=== PATIENT | female | born 1955 | race Caucasian/White ===

== ENCOUNTER → 2017-03-11 | Outpatient (CLI) | payer BC ==
--- NOTE | 2017-03-12 19:34 | Diagnostic Imaging Report ---
Bilateral screening mammogram 2D views with tomosynthesis. The current study was also evaluated with a Computer Aided Detection (CAD) system. INDICATION: Screening. No current complaints stated on the questionnaire. COMPARISON: 03/15/16 FINDINGS: The breasts are composed of scattered fibroglandular densities. There is no mass, architectural distortion or suspicious cluster of calcifications seen. Allowing for technique and positional differences, no suspicious change is seen. IMPRESSION: No significant change. ACR BI-RADS Category 2: Benign findings. Result letter will be mailed to the patient. Note: At least 10% of breast cancer is not imaged by mammography. Dictated by: Dictated on workstation # [id number]
== END ==
LOC: RAD 09:40
PROVIDERS: ATTEND Nurse Practitioner
DX: Z12.31 Encounter for screening mammogram for malignant neoplasm of breast (principal)
CPT/HCPCS: 77067

== ENCOUNTER → 2019-01-19 | Outpatient (CLI) | payer BC ==
--- NOTE | 2019-01-19 21:17 | Diagnostic Imaging Report ---
Digital mammogram bilateral screening with 3-D tomosynthesis with CAD The study was compared to prior films of 03/11/2017 and 03/06/2016. At this time, there are no current complaints. The current study was also evaluated with a Computer Aided Detection (CAD) system. 3-D Tomographic imaging was also performed. FINDINGS: The fibroglandular tissue in both breasts is heterogeneously dense. This does limit the sensitivity of this exam. Overall, there does not appear to have been any significant change when compared to the prior study. No primary or secondary sign of malignancy is noted. IMPRESSION: There is no radiographic evidence for malignancy. ACR BI-RADS Category 1: Negative. Result letter will be mailed to the patient. Note: At least 10% of breast cancer is not imaged by mammography. Dictated by: Dictated on workstation # [id number]
== END ==
LOC: RAD 08:17
PROVIDERS: ATTEND Nurse Practitioner
DX: Z12.31 Encounter for screening mammogram for malignant neoplasm of breast (principal); N76.0 Acute vaginitis
CPT/HCPCS: 77067

== ENCOUNTER 2019-11-20 08:47 | Outpatient (RCR) | payer BC ==
[~2019-11-20] VITALS: Ht 167 cm; Wt 90.9 kg
[~2019-11-20 08:47] MED LIST: ADAL40SY SQ; AZAT50TA16 PO; ESTR1TAB24 PO; ESTR42.511 VG; FIBE1TAB4 PO; L.AC1CAP6 PO
== END 2019-11-20 14:42 | disposition home or self-care (01) ==
LOC: PREOP 08:47
PROVIDERS: ATTEND Obstetrics & Gynecology
DX: Z01.818 Encounter for other preprocedural examination (principal); Z01.812 Encounter for preprocedural laboratory examination; Z11.59 Encounter for screening for other viral diseases; N81.0 Urethrocele; N39.3 Stress incontinence (female) (male)
CPT/HCPCS: 87635

== ENCOUNTER 2019-11-24 07:58 | Day surgery (SDC) | payer BC ==
[~2019-11-24] VITALS: Ht 167 cm; Wt 90.9 kg
[2019-11-24] VITALS (12 sets, daily range): BP systolic 88–128; BP diastolic 54–84
[2019-11-24] MEDS ORDERED: ceFAZolin INJECTION 1,000 MG in WATER (STERILE) FOR INJECTION 10 ML IV ONE (08:15)
[2019-11-24] MEDS ORDERED: CATHETER FLUSH 10 ML SYR IV PRN (08:15)
[2019-11-24] MEDS ORDERED: NS (IVPB) 100 ML ONE (08:37)
[2019-11-24] MEDS ORDERED: VASOPRESSIN INJECTION 20 UNIT/ML VIAL ONE (08:37)
[2019-11-24] MEDS ORDERED: ESTRADIOL VAGINAL CREAM 42.5 GM (ESTRACE) VG ONE (08:37)
--- OUTSIDE RECORDS SUMMARY | 2019-11-24 08:39 | XMS REPORT ---
Author Author Rhea Johnson Organization [facility] Address [address] [place] [address] Care Team Providers Care Preflight Mechanic Name Role Phone JULIETTE Johnson Unavailable PROBLEMS Type Condition ICD9-CM Code XYL62-MP Code Onset Dates Condition S tatus SNOMED Code Problem DTAP TEST V06.1 Active Problem Need for prophylactic vaccination and inoculation, Influen za V04.81 Active [id number] ALLERGIES No Information ENCOUNTERS Encounter Location Date Diagnosis [facility] [address] [facility] [id number] [place] [address] [id number] Mar, Encounter for immunization Z 23 [place] [id number] [facility] [id number] [address] [place] [phone] Mar, Need for diphtheria-tetanus- pertussis (Tdap) vaccine Z23 and Flu vaccine need Z23 [facility] [address] [id number] [address] [place] [phone] Mar, [facility] [address] [facility] [id number] [address] [place] [phone] Mar, [facility] [address] [id number] [address] [place] [phone] Mar, [facility] [address] [id number] [address] [place] [phone] Mar, [facility] [address] [id number] [address] [place] [phone] May, [facility] [address] [id number] [address] [place] [phone] May, IMMUNIZATIONS No Known Immunizations SOCIAL HISTORY Never Assessed REASON FOR VISIT PLAN OF CARE VITAL SIGNS MEDICATIONS Unknown Medications RESULTS No Results PROCEDURES No Known procedures INSTRUCTIONS MEDICATIONS ADMINISTERED No Known Medications
--- OUTSIDE RECORDS SUMMARY | 2019-11-24 08:39 | XMS REPORT ---
Author Author Rhea MCMAHON Organization [employer] Address Unknown Phone Unavailable Care Team Providers Care Souvenir Assembler Name Role Phone JULIETTE MCMAHON CP Unavailable Allergies No Known Allergies Problems Problem Type Condition Code Onset Dates Condition Statu s Problem DTAP TEST V06.1 Active Assessment Need for vrwutbtccb-vhjbgxn-xtignquiq (Tdap) vaccine Z 23 Active Problem Need for prophylactic vaccination and inoculation, Inf luenza V04.81 Active Assessment Flu vaccine need Z23 Active Medications No Known Medications Procedures Procedure Coding System Code Date FLUARIX QUAD (3 & UP)-GSK-2014 CPT-4 26596 O 2014 SINGLE IMMUNIZATION ADMIN CPT-4 71408 Mar TDAP (BOOSTRIX) CPT-4 78498 Apr 20, 2015 IMMUNIZATION ADMIN, EACH ADD (please include units) CPT-4 08957 Apr 20, 2015 Results No Known Results Immunizations Vaccine Administration Date TDAP (BOOSTRIX) Apr 20, 2015 FLUARIX QUAD (3 & UP)-GSK-2014Apr 20, 2015 Summary Purpose [employer] Submission
--- OUTSIDE RECORDS SUMMARY | 2019-11-24 08:39 | XMS REPORT | Continuity of Care Document ---
Author Organization Unknown Address Unknown Phone Unavailable Allergies Active Description Code Type Severity Reaction Onset Reported/Identified Relationship to Patient Clinical Status Yes LIPITOR SEVERE SEVERE Yes LOVASTATIN SEVERE SEVERE Yes No Known Drug Allergies [id number] Drug Allergy Unknown N/A 11/17/2019 Medications There is no data. Problems Date Dx Coded Attending Type Code Diagnosis Diagnosed By 06/06/2012 V04.81 FLU DX (3 YRS AND ABOVE, IM) 06/06/2012 V06.1 TDAP DX 06/06/2012 RAJOTTE DIRECTOR PRIVATE, JULIETTE A V04.81 FLU DX (3 YRS AND ABOVE, IM) 06/06/2012 RAJOTTE DIRECTOR PRIVATE, JULIETTE A V06.1 TDAP DX 06/06/2012 RAJOTTE DIRECTOR PRIVATE, JULIETTE A V04.81 FLU DX (3 YRS AND ABOVE, IM) 06/06/2012 RAJOTTE DIRECTOR PRIVATE, JULIETTE A V06.1 TDAP DX 03/03/2015 SMITHA TAM [employer] [place] Ot V76.1 2 03/13/2016 SMITHA TAM [employer] [place] Ot Z12.3 1 ENCNTR SCREEN MAMMOGRAM FOR MALIGNANT NE 03/15/2016 SMITHA TAM [employer] [place] Ot R92.8 OTH ABN AND INCONCLUSIVE FINDINGS ON DX 03/19/2016 SMITHA TAMP Ot R92.8 OTH ABN AND INCONCLUSIVE FINDINGS ON DX 03/21/2016 SMTIHA TAM [employer] [place] Ot Z12.3 1 ENCNTR SCREEN MAMMOGRAM FOR MALIGNANT NE 03/28/2016 SMITHA TAM [employer] [place] Ot R92.8 OTH ABN AND INCONCLUSIVE FINDINGS ON DX 03/11/2017 Ot V76.12 OTH SCREEN MAMMO- MALIGN NEOPLASM OF ONEYDA 03/11/2017 SMITHA TAMP Ot V76.1 2 OTH SCREEN MAMMO-MALIGN NEOPLASM OF ONEYDA 03/11/2017 SMITHA TAM [employer] [place] Ot V76.1 2 OTH SCREEN MAMMO-MALIGN NEOPLASM OF ONEYDA 03/11/2017 ANEL SMITHA Dumont [employer] [place] Ot V76.1 2 OTH SCREEN MAMMO-MALIGN NEOPLASM OF ONEYDA 03/11/2017 ANEL SMITHA Julia [employer] [place] Ot Z12.3 1 ENCNTR SCREEN MAMMOGRAM FOR MALIGNANT NE 03/11/2017 ANEL SMITHA Dumont [employer] [place] Ot R92.8 OTH ABN AND INCONCLUSIVE FINDINGS ON DX 03/21/2017 ANEL SMITHA W [employer] [place] Ot Z12.3 1 ENCNTR SCREEN MAMMOGRAM FOR MALIGNANT NE 05/12/2018 ANEL SMITHA W [employer] [place] Ot V76.1 2 OTH SCREEN MAMMO-MALIGN NEOPLASM OF ONEYDA 05/12/2018 ANEL SMITHA W [employer] [place] Ot V76.1 2 OTH SCREEN MAMMO-MALIGN NEOPLASM OF ONEYDA 05/12/2018 ANEL SMITHA W [employer] [place] Ot V76.1 2 OTH SCREEN MAMMO-MALIGN NEOPLASM OF ONEYDA 05/12/2018 ANEL SMITHA W [employer] [place] Ot Z12.3 1 ENCNTR SCREEN MAMMOGRAM FOR MALIGNANT NE 05/12/2018 ANEL SMITHA W [employer] [place] Ot R92.8 OTH ABN AND INCONCLUSIVE FINDINGS ON DX 05/12/2018 ANEL SMITHA W [employer] [place] Ot Z12.3 1 ENCNTR SCREEN MAMMOGRAM FOR MALIGNANT NE 05/12/2018 ANEL SMITHA W [employer] [place] Ot V76.1 2 OTH SCREEN MAMMO-MALIGN NEOPLASM OF ONEYDA 05/12/2018 ANEL SMITHA W [employer] [place] Ot V76.1 2 OTH SCREEN MAMMO-MALIGN NEOPLASM OF ONEYDA 05/12/2018 ANEL SMITHA W [employer] [place] Ot V76.1 2 OTH SCREEN MAMMO-MALIGN NEOPLASM OF ONEYDA 05/12/2018 ANEL SMITHA W [employer] [place] Ot Z12.3 1 ENCNTR SCREEN MAMMOGRAM FOR MALIGNANT NE 05/12/2018 ANEL SMITHA W [employer] [place] Ot R92.8 OTH ABN AND INCONCLUSIVE FINDINGS ON DX 05/12/2018 SMITHA TAM [employer] [place] Ot Z12.3 1 ENCNTR SCREEN MAMMOGRAM FOR MALIGNANT NE 01/23/2019 SMITHA TAM [employer] [place] Ot N76.0 ACUTE VAGINITIS 01/23/2019 SMITHA TAM [employer] [place] Ot Z12.3 1 ENCNTR SCREEN MAMMOGRAM FOR MALIGNANT NE 02/13/2019 SMITHA TAM [employer] [place] Ot N76.0 ACUTE VAGINITIS 02/13/2019 ANELSTANLEYStar ELLIS Ot Z12.3 1 ENCNTR SCREEN MAMMOGRAM FOR MALIGNANT NE Procedures There is no data. Results Test Result Range Coronavirus SARS-CoV-2 SO 2018 - 0 12:47 Coronavirus Ab [Units/volume] in Serum Negative Negative Encounters ACCT No. Visit Date/Time Discharge Status Pt. Type Provider Facility Loc./Unit Complaint [id number] 04/26/2014 09:00:00 04/26/2014 23:59: 59 CLS Outpatient SALOME JULIETTE LOVETT [id number] 04/17/2013 10:11:00 04/17/2013 23:59: 59 CLS Outpatient JULIETTE MCMAHON APRN [id number] 06/06/2012 15:15:00 06/06/2012 23:59: 59 CLS Outpatient [id number] 06/06/2012 15:26:55 RECURRING [id number] 11/20/2019 08:47:00 020 14:42:00 DIS Outpatient BRITTANY SONG DO [facility] PREOP STRESS URINARY INCONTIN ENCE [id number] 01/19/2019 08:17:00 019 23:59:59 CLS Outpatient SMITHA TAM [facility] RAD SCREENING [id number] 03/11/2017 09:40:00 017 23:59:59 CLS Outpatient SMITHA TAM [facility] RAD SCREENING [id number] 03/15/2016 14:33:00 016 23:59:59 CLS Outpatient SMITHA TAM [facility] RAD ABNORMAL MAMMO [id number] 03/06/2016 14:47:00 016 23:59:59 CLS Outpatient SMITHA TAM [facility] RAD SCREENING [id number] 02/14/2015 11:44:00 015 23:59:59 CLS Outpatient SMITHA TAM [facility] RAD SCREENING [id number] 02/10/2014 08:38:00 014 23:59:59 CLS Outpatient SMITHA TAM [facility] RAD SCREENING [id number] 02/05/2013 09:48:00 013 23:59:59 CLS Outpatient SMITHA TAM [facility] RAD SCREENING [id number] 11/24/2019 12:00:00 P EN Preadmit BRITTANY SONG DO [facility] STRESS URINARY INCONTINENCE [id number] 01/01/2012 07:19:00 Document Registration [id number] 07/20/2019 13:49:00 07/20/2019 23:59 :00 DIS Outpatient Chang Fraser [id number] 07/06/2019 09:51:00 07/06/2019 23:59 :00 DIS Outpatient Chang Fraser [id number] 12/07/2018 00:00:00 12/07/2018 23:59: 00 DIS Outpatient Chang Fraser
--- OUTSIDE RECORDS SUMMARY | 2019-11-24 08:39 | XMS REPORT ---
Author Author [employer] [facility] [employer] [facility] [employer] Address [address] [address] Care Team Providers Care Paint Spray Tender Name Role Phone JULIETTE MCMAHON Unavailable Unavailable AMANDA NAIR Unavailable Unavailable AMANDA NAIR Unavailable Unavailable AMANDA NAIR Unavailable Unavailable SMITHA TAM Unavailable Unavailable JULIETTE Johnson Unavailable BRITTANY SONG DO Unavailable Unavailable DO Radha NAIR PCP Unavailable Unavailable Unavailable Unavailable Unavailable Unavailable Unavailable Unavailable Allergies Normalized Allergy Reported Date of Reaction(s) Care Provider Facility Allergy Type classification allergen Allergy Onset Drug Allergy HMG-CoA Lovastatin [facility] ([facility] sources[facility] Red[facility] of Inhibitors [place] (statins) [facility] ([id number]) Medications Medication Ingredient Drug Dose Dates Status Sig Sig Care Class(es) (Normalized) (Original) Provid er 0.4 ml adalimumab Tumor Active no Adalimumab no adalimumab Necrosis information Active 40 name 100 mg/ml Factor SUBCUTANEOUS prefilled Jenn Every Other syringe (1 Week source.) azaTHIOprin azaTHIOprin Purine Active no Azathioprine no e 50 mg e Antimetabol information Active 50 name oral tablet ite ORAL Twice A (1 source.) Day no Bran/Gum/Fi no Active no Bran/Gum/Fib no information b/Tona/Psyl/ information information /Tona/Psyl/Ke name (1 source.) Kelp/Pec lp/Pec Active 1000 ORAL Daily estradiol 1 Estradiol Estrogen Active no Estradiol no mg oral Translation information Active 1 name tablet (2 s: [ ORAL Every sources.) Estradiol] 48 Hours Active no Estradio no name inform l Active ation 42.5 VAGINAL 3X Per Week no L.acidoph & no Active no L.acidoph & no information Paracasei,B information information Paracasei,B. name (1 source.) .lactis lactis Active 1 ORAL Daily Problems Problem Normalized Date Last Normalized Normalized Provider Fa cility Classification Problem(s) Recorded Problem Problem Sta tus Duration Inflammatory Acute Episodic Completed SMITHA QUICK [facility] diseases of vaginitis [facility] pelvic [facility] - organs (2 Combes sources.) (54245) Other Other abnormal Episodic Completed SMITHA QUICK Not Kaylin ilable screening for and (53668) suspected inconclusive conditions findings on (not mental diagnostic disorders or imaging of infectious breast disease) (18 Translations: sources.) [ OTH SCREEN MAMMO-MALIGN NEOPLASM OF ONEYDA, ENCNTR SCREEN MAMMOGRAM FOR MALIGNANT NE] Procedures The data below is from unstructured sources Procedure Coding System Code Date FLUARIX QUAD (3 & UP)--2014 CPT-4 40142 Apr 20, 2015 SINGLE IMMUNIZATION ADMIN CPT-4 61548 Apr 20, 2015 TDAP (BOOSTRIX) CPT-4 90 715 Apr 20, 2015 IMMUNIZATION ADMIN, EACH ADD (please include units) CPT-4 00832 Apr 20, 2015 No procedure information available. Immunizations Normalized Immunization Date Notes Care Provider Facili ty Immunization influenza, 04-12-2017 no information no name Not Availab le injectable, (17930) quadrivalent, preservative free Results Test Name Value Interpretation Reference Range Date Time Fa cility (Normalized) (Normalized) (Medline Reference) laboratory on 2019-11-20 Coronavirus Ab Negative (no code) 11-20-2019 PENDING LOC ATION Qn (S) 08:47-0400 [facility] (76305) Vital Signs The data below is from unstructured sources Vital Reading Result Col lection Date/Time Interventions No Information Plan of Treatment Normalized Care Care Detail Care Activity Date Care Provider F acility Activity Coronavirus Ab Qn no information no information DO AMANDA NAIR [phone] (S) (Work Phone: [facility] ) ([address]) Goals Patient Goal Desired Goal no information no information Social History Normalized Code Original Code Date Value Tobacco smoking status Tobacco smoking status no information Ex-smoker (finding) ORIS ORIS no information no information 11-17-2019 Occasionally Us es no information no information 11-17-2019 No no information no information 11-17-2019 Former Smoker Sex Assigned At Sex Assigned At no information F emale Functional Status The data below is from unstructured sourcesNo Functional Status information available Mental Status The data below is from unstructured sourcesNo Mental Status Information Available Encounters Encounter Normalized Encounter Encounter Diagnosis Care Provi viridiana Organization Date Type 11-20-2019 Discharged Recurring no information (no phone) As cension [facility] (no phone) 11-20-2019 03-11-2017 Patient encounter no information no name no or ganization name 03-15-2016 Patient encounter no information no name no or ganization name 03-06-2016 Patient encounter no information no name no or ganization name 02-14-2015 Patient encounter no information no name no or ganization name 02-10-2014 Patient encounter no information no name no or ganization name 02-05-2013 Patient encounter no information no name no or ganization name Patient encounter no information no name no organizat ion name 11-20-2019 Patient encounter no information BRITTANY SONG DO ( no [facility] - procedure phone) [facility] 11-20-2019 (no phone) 11-17-2019 Patient encounter no information BRITTANY SONG DO ( no [facility] procedure phone) [facility] (no phone) 07-20-2019 Patient encounter no information no name no or ganization name - procedure 07-20-2019 07-06-2019 Patient encounter no information no name no or ganization name - procedure 07-06-2019 01-19-2019 Patient encounter no information no name no or ganization name procedure 12-07-2018 Patient encounter no information no name no or ganization name - procedure 12-08-2018 01-01-2012 Patient encounter no information no name no or ganization name procedure Medical Equipment The data below is from unstructured sourcesNo Medical Equipment Information available Payers Normalized Payer Value [facility] no information Evaluation note Note Type Note Facility Evaluation No Assessments Information Available A scension note [facility] ([address]) Summary Purpose [employer]ClinicalWorks Submission Advance Directives Advance Directive Response Recorded Date/Time Advance Directives No Ma y 2019 11:18am Health Care Power of Roving Frame Tender No November 17, 2019 11:18am Resuscitation Status Full Code November 17, 2019 11:18am Additional Source Comments This clinical document has been generated using [employer] software that has been certified by the Office of the National Coordinator for Health Information Technology (ONC 15.99.04.3023.Diam.31.00.0.384088) and the National Committee for Barber Stylist (NCQA, as an eMeasure certified technology). FOR RECORDS PERTAINING TO PATIENTS WHO ARE OR HAVE BEEN ENROLLED IN A CHEMICAL D EPENDENCY/SUBSTANCE ABUSE PROGRAM, SOME INFORMATION MAY BE OMITTED. This clinica l summary was aggregated from multiple sources. Caution should be exercised in using it in the provision of clinical care. This summary normalizes information from multiple sources, and as a consequence, information in this document may ma terially change the coding, format and clinical context of patient data. In jermain tion, data may be omitted in some cases. CLINICAL DECISIONS SHOULD BE BASED ON T HE PRIMARY CLINICAL RECORDS. [facility]. provides no warranty or guara ntee of the accuracy or completeness of information in this document.The followi information is based on time limited clinical information
[2019-11-24] MEDS: LACTATED RINGERS 1,000 ML IV PRN (09:10)
[2019-11-24] MEDS ORDERED: MIDAZOLAM 2 MG/2 ML (VERSED) VIAL ONE (09:11)
[2019-11-24] MEDS ORDERED: fentaNYL INJECTION 100 MCG/2 ML AMP ONE ×2 (09:11→11:23)
[2019-11-24 09:20] LABS: BASOPHILS % (AUTO) 1 % (0-10); EOSINOPHILS # (AUTO) 0.1 10^3/uL (0.0-0.3); EOSINOPHILS % (AUTO) 2 % (0-10); HEMATOCRIT 40 % (35-52); HEMOGLOBIN 13.1 G/DL (11.5-16.0); LYMPHOCYTES # (AUTO) 1.3 X 10^3 (1.0-4.0); LYMPHOCYTES % (AUTO) 21 % (12-44); MEAN CORPUSCULAR HEMOGLOBIN 30 PG (25-34); MEAN CORPUSCULAR HGB CONC 33 G/DL (32-36); MEAN CORPUSCULAR VOLUME 92 FL (80-99); MEAN PLATELET VOLUME 10.5 FL (7.4-10.4); MONOCYTES # (AUTO) 0.8 X 10^3 (0.0-1.0); MONOCYTES % (AUTO) 13 % (0-12); NEUTROPHILS # (AUTO) 3.8 X 10^3 (1.8-7.8); NEUTROPHILS % (AUTO) 63 % (42-75); PLATELET COUNT 278 10^3/uL (130-400); RED CELL DISTRIBUTION WIDTH 14.9 % (10.0-14.5)
[2019-11-24] MEDS ORDERED: LIDOCAINE PF 2% 5 ML (XYLOCAINE) VIAL ONE (09:24)
[2019-11-24] MEDS ORDERED: ONDANSETRON 4 MG/2 ML (SDV) Z0FRAN ONE (09:24)
[2019-11-24] MEDS ORDERED: proPOfol 200 MG/20 ML (DIPRIVAN) VIAL IV ONE (09:24)
[2019-11-24] MEDS ORDERED: SEVOFLURANE (ULTANE) 15 ML INHAL SOLN ONE ×3 (09:24→11:42)
--- NOTE | 2019-11-24 10:35 | Progress Note-Pre Operative ---
Pre-Operative Progress Note H&P Reviewed The H&P was reviewed, patient examined and no changes noted. Plan anterior posterior colporrhaphy. Decided against pubovaginal sling Date Seen by Provider: November 24, 2019 Time Seen by Provider: 08:15 Date H&P Reviewed: November 24, 2019 Time H&P Reviewed: 07:30 Pre-Operative Diagnosis: anterior posterior repair, stress incontinence BRITTANY SONG DO November 24, 2019 10:35
[2019-11-24] MEDS ORDERED: KETOROLAC 30 MG/ML VIAL ONE (11:40)
[2019-11-24] MEDS ORDERED: LACTATED RINGERS 1,000 ML IV SCH (11:49)
--- NOTE | 2019-11-24 11:56 | Operative Report ---
Operative Report Date of Procedure/Surgery November 24, 2019 Surgeon (s) BRITTANY SONG DO [employer] Supervisor (s): nA Post-Operative Diagnosis RECTOCELE Procedure Performed POSTERIOR COLPORRHAPHY Description of Procedure Anesthesia Type: General Estimated blood loss (mL): 100 Specimen(s) collected/removed MIMINAL Description of the Procedure After informed consent was obtained, patient was taken into the operating room where general anesthetic was found to be adequate. She was prepped and draped in the usual sterile fashion in the dorsal lithotomy position. A Parish catheter was placed. A speculum was placed in the vagina. There was a large rectocele, 3-4+ with a scarred perineum. The lonestar retractor was placed. I used a marcial retractor to retracet the anterior vagina. I grasped the perineum on either side of the midline with the glen clamps. I then injected the posterior epithelium with the dilute vasopressin and then made a midline incision I undermined the posterior vaginal epithelium and then dissected this off of the pubovaginal fascia laterally. I then reduced the rectocele with two layers of interrupted figure of eight style 2-0 Vicryl sutures. This adequately reduced the rectocele. There was no enterocele. I then did an perineorrhaphy by removed a pyramidal shaped portion of the per ineum, thus removing the scarred area. I then trimmed the vaginal epithelium and then closed the defect with 2-- Vicryl in a running fashion. And then repositioned the perineum with a crown stitch and closed with 2-0 Vicryl in a running fashion. The vagina was then packed with Estrace cream and vaginal packing. Sponge, lap, needle and instrument counts correct times two. Patient was awakened and taken to recovery in a stable condition Findings of the Procedure 3-4 + RECTOCELE SCARRED PERINEUM MINIMAL CYSTOCELE Allergies and Home Medications Allergies Coded Allergies: No Known Drug Allergies (Unverified , 11/17/19) Home Medications Adalimumab 40 Mg/0.4 Ml Syringekit, 40 MG SQ EVERY OTHER WEEK, (Reported) Azathioprine 50 Mg Tablet, 50 MG PO BID, (Reported) Bran/Gum/Fib/Tona/Psyl/Kelp/Pec 1,000 Mg Tablet, 1,000 MG PO DAILY, (Reported) Estradiol 1 Mg Tablet, 1 MG PO Q48H, (Reported) Estradiol 42.5 Gm Cream.appl, 42.5 GM VG 3X PER WEEK, (Reported) L.acidoph & Paracasei,B.lactis 1 Each Capsule, 1 EACH PO DAILY, (Reported) Patient Home Medication List Home Medication List Reviewed: Yes BRITTANY SONG DO November 24, 2019 11:56
[2019-11-24] MEDS ORDERED: KETOROLAC 15 MG/ML VIAL IVP ONE (12:00)
[2019-11-24] MEDS ORDERED: ONDANSETRON 4 MG/2 ML (SDV) Z0FRAN IVP PRN (12:00)
[2019-11-24] MEDS ORDERED: MEPERIDINE (DEMEROL) INJ 50 MG/ML IVP ONE (12:00)
[2019-11-24] MEDS ORDERED: morphine INJ 4 MG/ML 1 ML (VIAL/SYRINGE) IVP PRN (12:00)
[2019-11-24] MEDS ORDERED: fentaNYL INJECTION 100 MCG/2 ML AMP IVP ONE (12:00)
[2019-11-24] MEDS ORDERED: HYDROmorphone 2 MG/ML VIAL (DILAUDID) IV ONE (12:00)
[2019-11-24] MEDS ORDERED: morphine INJ 10 MG/ML 1ML (SYR OR VIAL) IVP ONE (12:00)
[2019-11-24] MEDS ORDERED: PROMETHAZINE INJ 25 MG/ML (PHENERGAN) AMP IVP ONE (12:00)
[2019-11-24] MEDS ORDERED: BENZOCAINE/MENTHOL (DERMOPLAST) 60 ML CAN TP PRN (12:00)
--- NOTE | 2019-11-24 12:00 | Anesthesia-General Post-Op ---
General Patient Condition Mental Status/LOC: Same as Preop Cardiovascular: Satisfactory Nausea/Vomiting: Absent Respiratory: Satisfactory Pain: Controlled Complications: Absent Post Op Complications Complications None Follow Up Care/Instructions Patient Instructions None needed. Anesthesia/Patient Condition Patient Condition Patient is doing well, no complaints, stable vital signs, no apparent adverse anesthesia problems. No complications reported per nursing. TESHA DOWNING CRNA November 24, 2019 12:00
[2019-11-24] MEDS ORDERED: HYDROmorphone 2 MG/ML VIAL (DILAUDID) ONE (12:14)
--- NOTE | 2019-11-24 12:50 | NUR ---
Pt to room 306 via bed accompanied by PACU staff. RN to room to introduce self. Report rec'd from Paige Ramirez RN. Assessment completed, VS taken. IV fluids to pump. Calf SCD's on and activated. Parish patent, draining to dependent drainage. Pt oriented to room and call light. Ice chips provided at this time. Pt denies needs or concerns. Addendum: 11/24/19 at 1416 by SOFYA KIDD RN Pt to room 305, not 306.
[2019-11-24] MEDS: ACETAMINOPHEN 500 MG TAB (TYLENOL) PO SCH ×2 (14:00→22:00)
--- NOTE | 2019-11-24 16:04 | NUR ---
Dr. Maradiaga called and notified of only 10ml/hr output. Order rec'd for 1000ml IV fluid bolus and continue to monitor.
[2019-11-24] MEDS: IBUPROFEN 600 MG (MOTRIN) TAB PO SCH ×2 (18:06→23:31)
--- NOTE | 2019-11-24 18:53 | NUR ---
Dr. Maradiaga called to unit to check on pt. Updated on improved but unremarkable output. No new orders rec'd.
--- NOTE | 2019-11-24 19:20 | NUR ---
Pt sitting up in bed on phone, denies needs or pain. plan of care reviewed, carbajal cath to dd, small amount of urine noted in tubing and milked to chamber, will cont to monitor. fresh ice water given.
--- NOTE | 2019-11-24 20:20 | NUR ---
Pt cont to sit up in bed on ipad, denies needs or pain.
--- NOTE | 2019-11-24 21:20 | NUR ---
pt resting with eyes closed, aroused per rn. Rn milked carbajal cath, pericare given and clean vpad in place. 60ml of dark yellow urine noted in carbajal chamber.
--- NOTE | 2019-11-25 01:29 | NUR ---
Pt sleeping in bed, aroused to hang iv fluid. Parish cath to dd, and adequate output noted, urine in chamber now clear/yellow.
[2019-11-25] MEDS: LACTATED RINGERS 1,000 ML IV PRN (01:30)
[2019-11-25 03:40] VITALS: BP 102/53
[2019-11-25 05:17] LABS: BASOPHILS % (AUTO) 0 % (0-10); EOSINOPHILS # (AUTO) 0.1 10^3/uL (0.0-0.3); EOSINOPHILS % (AUTO) 1 % (0-10); HEMATOCRIT 34 % (35-52); HEMOGLOBIN 11.2 G/DL (11.5-16.0); LYMPHOCYTES % (AUTO) 20 % (12-44); MEAN CORPUSCULAR HEMOGLOBIN 31 PG (25-34); MEAN CORPUSCULAR HGB CONC 33 G/DL (32-36); MEAN CORPUSCULAR VOLUME 95 FL (80-99); MONOCYTES % (AUTO) 10 % (0-12); NEUTROPHILS # (AUTO) 6.7 X 10^3 (1.8-7.8); NEUTROPHILS % (AUTO) 68 % (42-75); PLATELET COUNT 234 10^3/uL (130-400); RED CELL DISTRIBUTION WIDTH 15.1 % (10.0-14.5); WHITE BLOOD COUNT 9.8 10^3/uL (4.3-11.0)
[2019-11-25 05:29] LABS: CHLORIDE 109 MMOL/L (98-107); POTASSIUM 4.4 MMOL/L (3.6-5.0); SODIUM 139 MMOL/L (135-145)
[2019-11-25 05:31] LABS: GLUCOSE 96 MG/DL (70-105)
[2019-11-25 05:33] LABS: CARBON DIOXIDE 22 MMOL/L (21-32)
[2019-11-25 05:35] LABS: CREATININE SERUM 0.78 MG/DL (0.60-1.30); GFR ESTIMATED > 60
[2019-11-25 05:36] LABS: BUN/CREATININE RATIO 12
[2019-11-25] MEDS: IBUPROFEN 600 MG (MOTRIN) TAB PO SCH (05:48)
--- NOTE | 2019-11-25 08:23 | NUR ---
Assisted up to bathroom per Radha Rueda rn. void and pericare. Pt then ambulating in halls accompanied by radha rueda rn. Pt then to chair. call light with in reach.
--- NOTE | 2019-11-25 08:36 | Discharge Inst-Women's Service ---
Discharge Inst-Women's Serv Depart Medication/Instructions Instructions nothing in the vagina except estrogen cream Start 1 week post op. 1 gram 2-3 times per week Final Diagnosis rectocele prolapse cystocele (not repaired as it was insignificant once the rectocele was repaired) Problems Reviewed?: Yes Consults/Follow Up Additional Follow Up: Yes (1-2 weeks with Lissett and 6 weeks with Hiren) Activity Activity: Activity as Tolerated Driving Instructions: No Driving for 1 Week NO SMOKING: NO SMOKING Nothing Inside Vagina: No Douching, No [place], No Tampons Diet Discharge Diet: No Restrictions Symptoms to Report to DrPati: Swelling Increased, Bleeding Excessive, Pain Increased, Fever Over 101 Degrees F, Vaginal Bleeding Increase, Cramps in Feet or Legs, Vaginal Discharge Foul For Any Problems or Questions: Contact Your Physician Skin/Wound Care Infection Signs and Symptoms: Increased Redness, Foul Odor of Wound, Increased Drainage, Skin Itchy or Has a Rash, Increased Swelling, Temperature Above 101 F Bathing Instructions: BRITTANY Griffiths DO November 25, 2019 08:36
--- NOTE | 2019-11-25 08:47 | NUR ---
Dr Maradiaga to see patient. new orders received.
[2019-11-25] MEDS ORDERED: ENOXAPARIN 40 MG/0.4 ML (LOVENOX) SYR ONE (08:50)
[2019-11-25] MEDS ORDERED: DOCUSATE SODIUM 100 MG (COLACE) CAP PO SCH (09:00)
[2019-11-25 10:24] VITALS: BP 120/69
--- NOTE | 2019-11-25 10:35 | NUR ---
Discharge instructions explained, signed and copy to patient. pt verbalized understanding of instructions and denied questions.
--- NOTE | 2019-11-25 10:45 | NUR ---
Discharged to home. Downstairs in wheelchair. To private vehicle with belongings in hand.
[2019-11-26] MEDS ORDERED: ENOXAPARIN 40 MG/0.4 ML (LOVENOX) SYR SC SCH (09:00)
== END 2019-11-25 10:50 | disposition home or self-care (01) ==
LOC: SDC 07:58 → WS 12:47 → SDC 11-25 10:50
PROVIDERS: ATTEND Obstetrics & Gynecology
DX: N81.6 Rectocele (principal); N39.3 Stress incontinence (female) (male); N81.11 Cystocele, midline; Z90.710 Acquired absence of both cervix and uterus; Z87.891 Personal history of nicotine dependence
CPT/HCPCS: 36415; 80048; 85025; 86850; 86900; 86901; 87081; 94664

== ENCOUNTER → 2020-02-02 | Outpatient (CLI) | payer BC ==
--- NOTE | 2020-02-02 12:55 | Diagnostic Imaging Report ---
INDICATION: Routine screening. Comparison is made to prior mammogram from 01/19/2019 and 03/11/2017. 2-D and 3-D bilateral screening mammography was performed with CAD. Both breasts are heterogeneously dense, limiting the sensitivity of mammography. Tiny circumscribed nodule in the outer right breast is stable. No spiculated mass or malignant appearing microcalcifications are seen. Axillae are unremarkable. IMPRESSION: BI-RADS Category 2 No mammographic features suspicious for malignancy are identified. ACR BI-RADS Category 2: Benign findings. Result letter will be mailed to the patient. Note: At least 10% of breast cancer is not imaged by mammography. Dictated by: Dictated on workstation # [id number]
== END ==
LOC: RAD 08:05
PROVIDERS: ATTEND Surgery
DX: Z12.31 Encounter for screening mammogram for malignant neoplasm of breast (principal)
CPT/HCPCS: 77063; 77067

== ENCOUNTER → 2021-07-03 | Outpatient (CLI) | payer BC, OTHER ==
--- NOTE | 2021-07-03 10:25 | Diagnostic Imaging Report ---
INDICATION: Routine screening. COMPARISON: 02/02/2020 and 01/19/2019. TECHNIQUE: 2D and 3D bilateral screening mammography was performed with CAD. FINDINGS: Both breasts are heterogeneously dense, limiting the sensitivity of mammography. A benign nodule in the upper outer right breast is stable. No spiculated mass or malignant-appearing microcalcifications are seen. The axillae are unremarkable. IMPRESSION: No mammographic features suspicious for malignancy are identified. ACR BI-RADS Category 2: Benign findings. Result letter will be mailed to the patient. Note: At least 10% of breast cancer is not imaged by mammography. Dictated by: Dictated on workstation # [id number]
== END ==
LOC: RAD 08:00
PROVIDERS: ATTEND Nurse Practitioner
DX: Z12.31 Encounter for screening mammogram for malignant neoplasm of breast (principal)
CPT/HCPCS: 77063; 77067

== ENCOUNTER → 2022-07-04 | Outpatient (CLI) | payer MEDICARE, OTHER ==
--- NOTE | 2022-07-04 11:11 | Diagnostic Imaging Report ---
Indication: Routine screening. Comparison is made with prior mammogram 07/03/2021 and 02/02/2020. 2-D and 3-D bilateral screening mammography was performed with CAD. Scattered fibroglandular densities are identified bilaterally. A benign-appearing nodule in the upper outer right breast appears smaller. No new mass or malignant-appearing microcalcifications are seen. Axillae are unremarkable. IMPRESSION: BI-RADS Category 2 No mammographic features suspicious for malignancy are identified. ACR BI-RADS Category 2: Benign findings. Result letter will be mailed to the patient. Note: At least 10% of breast cancer is not imaged by mammography. Dictated by: Dictated on workstation # [id number]
== END ==
LOC: RAD 07:15
PROVIDERS: ATTEND Nurse Practitioner
DX: Z12.31 Encounter for screening mammogram for malignant neoplasm of breast (principal)
CPT/HCPCS: 77063; 77067